=== PATIENT | male | born 1960 | race Caucasian/White ===

== ENCOUNTER → 2017-08-31 | Day surgery (SDC) | payer BC ==
[2017-08-24 23:00] VITALS: BMI 38.6
[~2017-08-31] MED LIST: ALPRAZolam 0.25 MG TAB PO PRN; ALPRAZolam 0.5 MG TAB PO PRN; ASPIRIN 325 MG TAB PO STA; ATORVASTATIN 80 MG TAB PO STA; IODIXANOL 320 MG/ML 100 ML INTRAARTER ONE; LIDOCAINE 2% INJ 20 MG/ML (20 ML MDV) ONE; LIDOCAINE 2% INJ 20 MG/ML SQ ONE; MIDAZOLAM 2 MG/2 ML VIAL IV ONE; MIDAZOLAM 2 MG/2 ML VIAL ONE; NITROGLYCERIN SL TABS 0.4 MG TAB SUBLINGUAL PRN; RX INFO: IV CONTRAST WAS GIVEN 1 EACH MISC MISCELLANE PRN; SODIUM CHLORIDE 0.9% 1,000 ML IV SCH; SODIUM CHLORIDE 0.9% 1,000 ML in EMPTY BAG 1 BAG IV ONE; fentaNYL (PF) 50 MCG/ML 2 ML AMP IV ONE; fentaNYL (PF) 50 MCG/ML 2 ML AMP ONE
[2017-08-31 06:31] LABS: Glucose,Whole Blood 149 mg/dL (75-99)
[2017-08-31 06:32] VITALS: RESP 18
--- NOTE | 2017-08-31 10:30 | CC ---
CARDIAC CATHETERIZATION REPORT REFERRING PHYSICIAN: Dr. Akbar. INDICATION: Exertional shortness of breath with abnormal stress test showing ischemia in LAD distribution. PROCEDURE NOTE: After obtaining informed consent, left heart catheterization and coronary angiogram were performed via the right femoral artery using standard Mahesh catheters. The patient tolerated the procedure well without any obvious immediate complications. The patient will have manual hemostasis. SEDATION: Patient received moderate conscious sedation. The total sedation time was 15 minutes findings. HEMODYNAMICS: Left ventricular end-diastolic pressure is 16 mm. There is no significant gradient across aortic valve. LEFT VENTRICULOGRAM: Left ventriculogram is not performed. ANGIOGRAPHIC DATA: 1. Left main coronary artery: Left main coronary artery is a normal-sized vessel and is free of stenosis. Divides into left anterior descending coronary artery and circumflex coronary artery. 2. Circumflex coronary artery is a "is a nondominant vessel, but a large caliber vessel and is free of significant stenosis. LAD in the mid to distal portion becomes a small caliber vessel and there is a 40% stenosis just proximal to the 3rd diagonal branch. 3. Right coronary artery is a large dominant vessel that shows mild nonobstructive CAD. CONCLUSION: 1. 40% stenosis involving mid LAD. 2. Mild nonobstructive coronary artery disease involving right coronary artery. PLAN: I reviewed angiographic data with the patient and told him that his stress test is probably a false positive stress test and his symptoms are unrelated to the coronary artery disease. His management is going to be in the form of risk factor modification, optimal medical therapy. The patient is on Janumet, which he is going to hold for 48 hours. I will encourage the patient to lose weight and exercise regularly. I am going to stop the beta josh that he is on given the sinus bradycardia with heart rates in the 40s. MMODL / IJN: [id number] /
--- NOTE | 2017-08-31 10:30 | LTR ---
DATE OF SERVICE: 08/31/2017 Dear Ramu: I performed cardiac catheterization on Joe Ibarra. A detailed catheterization report is enclosed with the latter. In brief, the cardiac catheterization revealed nonobstructive coronary artery disease, which is going to be managed medically at this time. Thank you for giving me the privilege to participate in the care of this pleasant gentleman. Sincerely, ALCON / JANETHN: [id number] /
[2017-08-31 17:08] VITALS: BP 112/64; PULSE 56; TEMP 98.2
== END ==
LOC: CATHCVL 05:58
PROVIDERS: ATTEND Internal Medicine Cardiovascular Disease
DX: I25.10 Atherosclerotic heart disease of native coronary artery without angina pectoris (principal); R94.39 Abnormal result of other cardiovascular function study; E66.01 Morbid (severe) obesity due to excess calories; Z68.38 Body mass index [BMI] 38.0-38.9, adult; E11.9 Type 2 diabetes mellitus without complications; E78.5 Hyperlipidemia, unspecified; Z79.84 Long term (current) use of oral hypoglycemic drugs; Z79.1 Long term (current) use of non-steroidal anti-inflammatories (NSAID); Z79.82 Long term (current) use of aspirin; Z79.899 Other long term (current) drug therapy
CPT/HCPCS: 93458; C1894; C1769; J2001; J2250; Q9967; J3010

== ENCOUNTER → 2019-01-23 | Outpatient (CLI) | payer BC ==
--- NOTE | 2019-01-23 23:26 | CONS ---
CONSULTATION REASON FOR CONSULTATION: Sleep apnea. This is a 58-year-old male patient diagnosed having obstructive sleep apnea more than 20 years ago. His last CPAP machine was given to him 19 years ago. It is an older- generation Respironic unit set at a pressure of 16 cm of water. The patient was unable to tolerate the treatment and has been off treatment for all these years. He saw Dr. Chappell from ENT and underwent UPPP without any success. He continues to snore and stops breathing, as reported by his , and he is excessively somnolent and sleepy during the day. Greenwood score is 17. He goes to bed around 8 p.m. and wakes up at 5 a.m. in the morning. He wakes up gasping for air and he has the typical manifestations of obstructive sleep apnea. His weight is up and his current BMI is 42.4. PAST MEDICAL HISTORY: 1. Diabetes mellitus. 2. Hyperlipidemia. 3. LES. SURGICAL HISTORY: Surgical history includes UPPP for ELS and cardiac catheterization without any intervention. DRUG ALLERGIES: NOT KNOWN. OUTPATIENT MEDICATION: Outpatient medications include: 1. Janumet. 2. Pioglitazone. 3. Lipitor. 4. Vitamin D. 5. Baby aspirin. 6. Viagra. SOCIAL HISTORY: The patient is a nonsmoker. No history of alcoholism. No history of IV drugs. He operates a truck and other machinery. FAMILY HISTORY: Negative for sleep apnea. REVIEW OF SYSTEMS: Fourteen-point review of systems was done. Positive findings are all mentioned above in the history of present illness. No history of insomnia. Some occasional nocturia and urge to urinate at bedtime. No sleepwalking or sleeptalking. Wakes up with a dry mouth. No anxiety or panic attacks. No heartburn. No chest pain. No claustrophobia. No altered mentation. No problems with memory or concentration. He falls asleep during the day; not while driving; and has never been involved in a motor vehicle accident. 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 PHYSICAL EXAMINATION: BP is 136/67, pulse 78, respirations 16, temperature 97.8. Saturation 95% on room air. Height is 6 feet 0 inches. Weight is 317. Greenwood score is 17. Neck size 19 inches. BMI is 42.4. GENERAL APPEARANCE: Calm, comfortable. HEAD: Atraumatic, normocephalic. NECK: Short, supple. Crowding of the posterior pharynx. There is no goiter or neck mass. Mallampati class III. He has got also resection of the uvula and soft palate with previous signs of UPPP. LUNGS: Clear to auscultation. HEART: Heart sounds are regular rate and rhythm. Normal S1, S2. No S3, S4. No murmurs. ABDOMEN: Soft, nontender. No organomegaly. EXTREMITIES: No edema. No cyanosis or clubbing. NEUROLOGIC: Alert and oriented x3. No focal neurological deficits. PSYCHIATRIC: Negative for anxiety or depression. SKIN: Negative for any wounds or ulceration. IMPRESSION: 1. Symptomatic obstructive sleep apnea, severe at baseline, posterior uvulopalatopharyngoplasty. The patient has been on no treatment for the past 20 years and currently is coming in for reevaluation. 2. Morbid obesity. BMI is 42.4. 3. Previous uvulopalatopharyngoplasty. 4. Diabetes mellitus. 5. Hyperlipidemia. 6. Hypersomnia with Greenwood score of 17. PLAN: 1. Encourage weight loss. 2. Avoid driving, especially when feeling drowsy or sleepy. 3. Proceed with a screening polysomnogram to re-evaluate the severity of the disease and proceed with treatment accordingly. MMODL / IJN: [id number] /
== END ==
LOC: SLEEP 16:11
PROVIDERS: ATTEND Internal Medicine Critical Care Medicine
DX: G47.33 Obstructive sleep apnea (adult) (pediatric) (principal); E66.01 Morbid (severe) obesity due to excess calories; E11.9 Type 2 diabetes mellitus without complications; E78.5 Hyperlipidemia, unspecified; Z68.41 Body mass index [BMI] 40.0-44.9, adult; Z90.89 Acquired absence of other organs; Z79.899 Other long term (current) drug therapy; Z79.82 Long term (current) use of aspirin
CPT/HCPCS: 99211

== ENCOUNTER → 2019-05-01 | Outpatient (CLI) | payer BC ==
--- NOTE | 2019-05-01 20:55 | PN ---
PROGRESS NOTE This patient is 58-year-old with severe obstructive sleep apnea. He is post UPPP. AHI of 96. Currently on CPAP pressure of 12. He is doing extremely well clinically. However, the compliance data needs to be further adjusted. Based on the compliancy data that was collected over the past 30 years, the patient achieving more than 4 hours, 19 out of the past 30 days. He is averaging 5 hours of CPAP use per night. His leak is 54 L/minute while using a Dream[employer]ear [id number] large size mask. His AHI is down to 2. He is feeling better. Much more refreshed and alert during the day. He wants to continue the treatment and he is to achieve better compliance. REVIEW OF SYSTEMS: Fourteen-point review of system was done. Improved, in terms of sleepiness and tiredness and fatigue. Sleep quality is improved. [place] score is down to 9. No chest pain. No shortness of breath. No cough or sputum production, no altered mentation. PHYSICAL EXAMINATION: BP is 148/84, pulse 68, respirations 16, temperature 97.4, saturation 98% on room air. Weight is 317. General appearance is calm and comfortable. Head is atraumatic, normocephalic. Neck is post UPPP. There is no goiter or neck masses. Mallampati class IV. LUNGS: Clear to auscultation. HEART: Sounds regular rate and rhythm. Normal S1, S2. No S3. No murmurs. ABDOMEN: Soft, nontender. No organomegaly. EXTREMITIES: No edema. No cyanosis or clubbing. NEUROLOGIC: Alert and oriented x3. No focal neurological deficits. PSYCHIATRIC: Negative for anxiety or depression. IMPRESSION: 1. Severe obstructive sleep apnea AHI of 96, currently on CPAP at a pressure of 12, he is post uvulopalatopharyngoplasty. 2. REM rebound, post CPAP therapy. 3. Chronic hypersomnia, improved. 4. Obesity, BMI of 43. 5. Diabetes. 6. Hyperlipidemia. PLAN: Will demand better compliancy. The patient needs to achieve more than 4 hours every night. He needs to increase the average number of hours of CPAP use per night. He needs to wear it every night without any interruption. He is using a Dream[employer] fullface mask which will be renewed. Encourage weight loss. See me back in short-term followup in 6 months' time. MMODL / IJN: [id number] /
== END | disposition home or self-care (01) ==
LOC: SLEEP 16:20
PROVIDERS: ATTEND Internal Medicine Critical Care Medicine
DX: G47.33 Obstructive sleep apnea (adult) (pediatric) (principal); E11.9 Type 2 diabetes mellitus without complications; E78.5 Hyperlipidemia, unspecified; E66.9 Obesity, unspecified; Z68.41 Body mass index [BMI] 40.0-44.9, adult; Z99.89 Dependence on other enabling machines and devices

== ENCOUNTER 2022-07-04 18:32 | Emergency (ER) | payer BC ==
[2022-07-04 18:36] VITALS: BP 168/71; PULSE 71; RESP 20; TEMP 98.4
[2022-07-04] MEDS ORDERED: LIDOCAINE 1% INJ 10MG/ML (30 ML VIAL-PF) SQ ONE (18:57)
[2022-07-04] MEDS ORDERED: BACITRACIN OINT 1 EACH PACKET TOPICAL ONE (18:57)
--- NOTE | 2022-07-04 19:56 | ED ---
General Adult HPI - General Chief complaint: Wound/Laceration Stated complaint: rt hand laceration Time Seen by Provider: 07/04/22 18:38 Source: patient, RN notes reviewed (Initial triage pulse ox documented at 20%; this was documented incorrectly- recheck 98%) Mode of arrival: ambulatory Limitations: no limitations - History of Present Illness Initial comments: 61-year-old male presents to the emergency department for evaluation of wound to the third digit on the right hand. Patient states he cut his finger on a wood burning stove this evening. Wound was cleansed prior to arrival. No active bleeding. Complains of minimal discomfort. Did not any medicines prior to arrival. States tetanus shot is up-to-date. Denies any loss of sensation, r elisa of motion, or any other injuries at this time. - Related Data Home Medications Medication Instructions Recorded Confirmed Atorvastatin [Lipitor] 10 mg PO HS 02/26/15 08/31/17 Aspirin 81 mg PO DAILY 08/23/17 08/31/17 Ergocalciferol (Vitamin D2) 50,000 unit PO WEEKLY 08/31/17 08/31/17 [Vitamin D2] Pioglitazone [Actos] 30 mg PO DAILY 08/31/17 08/31/17 sitaGLIPtin PHOS/metFORMIN HCL 1 each PO BID 08/31/17 08/31/17 [Janumet 50-1,000 mg Tablet] Allergies Allergy/AdvReac Type Severity Reaction Status Date / Time No Known Allergies Allergy Verified 07/04/22 18:36 Review of Systems ROS Statement: Those systems with pertinent positive or pertinent negative responses have been documented in the HPI. ROS Other: All systems not noted in ROS Statement are negative. Past Medical History Past Medical History: COPD, Diabetes Mellitus, Hyperlipidemia, Sleep Apnea/CPAP/BIPAP Additional Past Medical History / Comment(s): PVD, NO CPAP History of Any Multi-Drug Resistant Organisms: None Reported Past Surgical History: Heart Catheterization, Tonsillectomy Additional Past Surgical History / Comment(s): SLEEP APNEA SURGERY. Past Anesthesia/Blood Transfusion Reactions: No Reported Reaction Past Psychological History: No Psychological Hx Reported Smoking Status: Current every day smoker Past Alcohol Use History: None Reported Past Drug Use History: None Reported - Past Family History Father Family Medical History: Cancer Additional Family Medical History / Comment(s): PROSTATE Mother Family Medical History: Eye Disorder Additional Family Medical History / Comment(s): RA Brother(s) Family Medical History: Cancer Additional Family Medical History / Comment(s): THROAT,TESTICULAR Sister(s) Family Medical History: Cancer Additional Family Medical History / Comment(s): BREAST,OVARIAN General Exam Limitations: no limitations (Well-developed, well-nourished male in no acute distress. Initial temperature 98.4, pulse 71, respirations 20, blood pressure 160/71, pulse ox recheck 98% on room air.) General appearance: alert, in no apparent distress Respiratory exam: Present: normal lung sounds bilaterally. Absent: respiratory distress, wheezes, rales, rhonchi, stridor Cardiovascular Exam: Present: regular rate, normal rhythm, normal heart sounds. Absent: systolic murmur, diastolic murmur, rubs, gallop, clicks Right Forearm Wrist exam: Present: normal inspection, full ROM. Absent: tenderness, swelling Hand Wrist exam: Present: normal inspection, full ROM, laceration (1.5cm irregular shaped laceration on the palmar surface of the distal phalanx on the right hand. ROM intact. No loss of sensation.). Absent: tenderness, swelling Neuro motor exam: Present: fingers 2-5 abduction intact Vascular: Present: normal capillary refill, radial pulse. Absent: vascular compromise, Pallo Neurological exam: Present: alert, oriented X3, CN II-XII intact Psychiatric exam: Present: normal affect, normal mood Course Vital Signs 07/04/22 07/04/22 18:34 20:04 Temperature 98.4 F Pulse Rate 71 Respiratory 20 Rate Blood Pressure 168/71 O2 Sat by Pulse 20 L 95 Oximetry Procedures - Laceration Laceration #1 Consent Obtained: verbal consent Indication: laceration Site: hand (right hand, 3rd digit, distal phalanx) Size (cm): 1 Description: irregular Depth: simple, single layer Anesthetic Used: lidocaine 1% Anesthesia Technique: nerve block Amount (mls): 2 Pre-repair: wound explored, irrigated extensively, deep structures intact Type of Sutures: nylon Size of Sutures: 4-0 Number of Sutures: 3 Technique: simple, interrupted Patient Tolerated Procedure: well, no complications Additional Comments: Patient educated on wound care/monitoring, and instructed on appropriate follow- up. Bacitracin dressing applied. Patient verbalizes understanding. Medical Decision Making - Medical Decision Making 61-year-old male with a past medical history of COPD and diabetes presents to the emergency department for evaluation of laceration. Upon exam, patient is well-appearing and in no acute distress. There is a 1.5 cm laceration to the distal phalanx on the third digit of the right hand. Bleeding was controlled prior to arrival. TD up to date. ROM intact. Digital block was performed and wound was thoroughly irrigated. There was no evidence of foreign body or deep structure injury. 3 simple interrupted sutures were placed with good alignment. Bacitracin dressing applied. Patient is instructed on appropriate wound care and follow-up. Encouraged to follow up with his PCP for a recheck in 48-72 hours. He verbalizes understanding and agrees with this plan. Attending: Sara Pierre Clinical Impression: Laceration Disposition: HOME SELF-CARE Condition: Stable Instructions (If sedation given, give patient instructions): Care For Your St itches (ED), Laceration (ED) Additional Instructions: Gently cleanse hand with mild soap and water. Apply antibiotic ointment. Keep covered when out of the house. Avoid submerging hand in contaminated water. Have sutures removed in 7-10 days. May take Tylenol or Motrin if needed for pain. Follow-up with your PCP for a wound recheck on Tuesday. Return to the emergency department with any new, worsening, or concerning symptoms. Is patient prescribed a controlled substance at d/c from ED?: No Referrals: Trung Stroud MD [Primary Care Provider] - 1-2 days Time of Disposition: 19:56
== END 2022-07-04 20:05 | disposition home or self-care (01) ==
LOC: EC 18:32
DX: S61.411A Laceration without foreign body of right hand, initial encounter (principal); J44.9 Chronic obstructive pulmonary disease, unspecified; E11.9 Type 2 diabetes mellitus without complications; E78.5 Hyperlipidemia, unspecified; G47.30 Sleep apnea, unspecified; F17.200 Nicotine dependence, unspecified, uncomplicated; Z79.82 Long term (current) use of aspirin; Z79.899 Other long term (current) drug therapy; W26.8XXA Contact with other sharp object(s), not elsewhere classified, initial encounter
CPT/HCPCS: 99283; 12001; J2001

== ENCOUNTER → 2023-03-07 | Outpatient (CLI) | payer BC ==
--- NOTE | 2023-03-08 08:46 | CTL ---
EXAMINATION TYPE: CT Low Dose Lung DATE OF EXAM ORDERED: 03/07/2023 HISTORY: . Lung cancer screening CT DLP: 177.[address] CTDI: 4.3 mGy Automated exposure control for dose reduction was used. SCREENING VISIT: COMPARISON: TECHNIQUE: Low dose computed tomography scan was performed through the chest at 1 mm thick sections a nd reconstructed images in multiple planes at 1 mm and [address] DIAGNOSTIC QUALITY: Satisfactory FINDINGS: There is a very mm groundglass right lower lobe image 35 series 6. There is a 3 mm nodule right lower lobe image 44 series 6. Additional micronodule in the 2 mm nodules are seen in benign Paraseptal emphysema along the left lung apex. No pneumothorax or pleural effusion. Airways patent. Heart size normal. The calcification below the aortic valve and there is dense LAD coronary artery ca lcification. Aorta normal caliber with mild atherosclerotic changes. No pathologic adenopathy by noncontrast technique. Multilevel hypertrophic and degenerative changes s pine. Structures of the upper abdomen demonstrate a limited assessment. A nodule involving the right adrenal gland is stable dating back to CT abdomen 1013 and therefore likely related to adenoma. IMPRESSION: 1. Multiple less than 5 mm pulmonary nodules which have benign appearance. 2. Dense coronary artery calcification correlate clinically. CT LUNG RAD AND CT CHEST RECOMMENDATION: Lung-Rad 2 Benign Appearance or Behavior: Continue annual sc reening with LDCT in 12 months.
== END | disposition home or self-care (01) ==
LOC: RADCTMAIN 18:27
PROVIDERS: ATTEND Family Medicine
DX: Z12.2 Encounter for screening for malignant neoplasm of respiratory organs (principal); F17.210 Nicotine dependence, cigarettes, uncomplicated; I25.10 Atherosclerotic heart disease of native coronary artery without angina pectoris; R91.8 Other nonspecific abnormal finding of lung field
CPT/HCPCS: 71271

== ENCOUNTER 2023-09-26 09:58 | Emergency (ER) | payer BC ==
--- NOTE | 2023-09-26 10:56 | ED ---
General Adult HPI - General Chief complaint: Urogenital Stated complaint: Kidney Stone Time Seen by Provider: 09/26/23 10:07 Source: patient, RN notes reviewed Mode of arrival: ambulatory Limitations: no limitations - History of Present Illness Initial comments: 63-year-old male presents emergency department chief complaint of difficulty urinating. Patient states he has painful burning urine states Ernestina is some hesitancy. Patient states she was seen at [facility] started on Bactrim for an E. coli infection. Patient states that he is never had a UTI before denies any knowledge of enlarged prostate. He denies any flank pain states symptoms started to start when his Ozempic dose was increased. Patient states that he was also started on Flomax after being diagnosed with his UTI. - Related Data Home Medications Medication Instructions Recorded Confirmed Atorvastatin [Lipitor] 10 mg PO HS 02/26/15 08/31/17 Aspirin 81 mg PO DAILY 08/23/17 08/31/17 Ergocalciferol (Vitamin D2) 50,000 unit PO WEEKLY 08/31/17 08/31/17 [Vitamin D2] Pioglitazone [Actos] 30 mg PO DAILY 08/31/17 08/31/17 sitaGLIPtin PHOS/metFORMIN HCL 1 each PO BID 08/31/17 08/31/17 [Janumet 50-1,000 mg Tablet] Previous Rx's Medication Instructions Recorded Ciprofloxacin HCl [Cipro] 500 mg PO Q12HR #20 tablet 09/26/23 Allergies Allergy/AdvReac Type Severity Reaction Status Date / Time No Known Allergies Allergy Verified 09/26/23 10:03 Review of Systems ROS Statement: Those systems with pertinent positive or pertinent negative responses have been documented in the HPI. ROS Other: All systems not noted in ROS Statement are negative. Past Medical History Past Medical History: COPD, Diabetes Mellitus, Hyperlipidemia, Sleep Apne a/CPAP/BIPAP Additional Past Medical History / Comment(s): PVD, NO CPAP History of Any Multi-Drug Resistant Organisms: None Reported Past Surgical History: Heart Catheterization, Tonsillectomy Additional Past Surgical History / Comment(s): SLEEP APNEA SURGERY. Past Anesthesia/Blood Transfusion Reactions: No Reported Reaction Past Psychological History: No Psychological Hx Reported Smoking Status: Current every day smoker Past Alcohol Use History: None Reported Past Drug Use History: None Reported - Past Family History Father Family Medical History: Cancer Additional Family Medical History / Comment(s): PROSTATE Mother Family Medical History: Eye Disorder Additional Family Medical History / Comment(s): RA Brother(s) Family Medical History: Cancer Additional Family Medical History / Comment(s): THROAT,TESTICULAR Sister(s) Family Medical History: Cancer Additional Family Medical History / Comment(s): BREAST,OVARIAN General Exam Limitations: no limitations General appearance: alert, in no apparent distress Head exam: Present: atraumatic, normocephalic, normal inspection Eye exam: Present: normal appearance, PERRL, EOMI. Absent: scleral icterus, conjunctival injection, periorbital swelling ENT exam: Present: normal exam, mucous membranes moist Neck exam: Present: normal inspection, full ROM. Absent: tenderness, meningismus, lymphadenopathy Respiratory exam: Present: normal lung sounds bilaterally. Absent: respiratory distress, wheezes, rales, rhonchi, stridor Cardiovascular Exam: Present: regular rate, normal rhythm, normal heart sounds. Absent: systolic murmur, diastolic murmur, rubs, gallop, clicks GI/Abdominal exam: Present: soft, normal bowel sounds. Absent: distended, tenderness, guarding, rebound, rigid Back exam: Absent: CVA tenderness (R), CVA tenderness (L) Course Vital Signs 09/26/23 09/26/23 10:00 12:29 Temperature 97.9 F 97.8 F Pulse Rate 69 88 Respiratory 20 18 Rate Blood Pressure 153/72 142/78 O2 Sat by Pulse 98 98 Oximetry Medical Decision Making - Medical Decision Making Was pt. sent in by a medical professional or institution (, PA, MECHANICS SUPERVISOR, urgent care, hospital, or snf...) When possible be specific @ -No Did you speak to anyone other than the patient for history (EMS, parent, family, police, friend...)? What history was obtained from this source @ -No Did you review nursing and triage notes (agree or disagree)? Why? @ -I reviewed and agree with nursing and triage notes Were old charts reviewed (outside hosp., previous admission, EMS record, old EKG, old radiological studies, urgent care reports/EKG's, snf records)? Report findings @ -[Reviewed outpatient urine culture Differential Diagnosis (chest pain, altered mental status, abdominal pain women, abdominal pain men, vaginal bleeding, weakness, fever, dyspnea, syncope, headache, dizziness, GI bleed, back pain, seizure, CVA, palpatations, mental health, musculoskeletal)? @ -Differential Abdominal Pain Men: Appendicitis, cholecystitis, diverticulosis, ischemic bowel, pancreatitis, hepatitis, UTI, gastroenteritis, AAA, incarcerated hernia, bowel obstruction, constipation, inflammatory bowel, hepatitis, peptic ulcer disease, splenic infarction, perforated viscus, testicular torsion, this is not meant to be an all-inclusive list EKG interpreted by me (3pts min.). @ -[None X-rays interpreted by me (1pt min.). @ -[None done CT interpreted by me (1pt min.). @ -None done U/S interpreted by me (1pt. min.). @ -None done What testing was considered but not performed or refused? (CT, X-rays, U/S, la bs)? Why? @ -None What meds were considered but not given or refused? Why? @ -None Did you discuss the management of the patient with other professionals (professionals i.e. , PA, MECHANICS SUPERVISOR, lab, RT, psych nurse, social work administrator, metals sales representative, teacher, infantry weapons officer, disease case manager rn)? Give summary @ -No Was smoking cessation discussed for >3mins.? @ -No Was critical care preformed (if so, how long)? @ -No Were there social determinants of health that impacted care today? How? (Homelessness, low income, unemployed, alcoholism, drug addiction, transportation, low edu. Level, literacy, decrease access to med. care, penitentiary, rehab)? @ -No Was there de-escalation of care discussed even if they declined (Discuss DNR or withdrawal of care, Hospice)? DNR status @ -No What co-morbidities impacted this encounter? (DM, HTN, Smoking, COPD, CAD, Cancer, CVA, ARF, Chemo, Hep., AIDS, mental health diagnosis, sleep apnea, morbid obesity)? @ -None Was patient admitted / discharged? Hospital course, mention meds given and route, prescriptions, significant lab abnormalities, going to OR and other pertinent info. @ -[Charged patient's laboratory studies show evidence of a urinary tract infection and he was given Rocephin patient was switched to ciprofloxacin as he has had minimal improvement after Bactrim. Patient will have follow-up with urology return brands discussed. Undiagnosed new problem with uncertain prognosis? @ -No Drug Therapy requiring intensive monitoring for toxicity (Heparin, Nitro, Insulin, Cardizem)? @ -No Were any procedures done? @ -No Diagnosis/symptom? @ -[UTI Acute, or Chronic, or Acute on Chronic? @ -Acute Uncomplicated (without systemic symptoms) or Complicated (systemic symptoms)? @ -[Complicated Side effects of treatment? @ -No Exacerbation, Progression, or Severe Exacerbation? @ -No Poses a threat to life or bodily function? How? (Chest pain, USA, MD, pneumonia, PE, COPD, DKA, ARF, appy, cholecystitis, CVA, Diverticulitis, Homicidal, Suicidal, threat to staff... and all critical care pts) @ -No - Lab Data Result diagrams: 09/26/23 10:50 09/26/23 10:50 Lab Results 09/26/23 09/26/23 09/26/23 Range/Units 10:00 10:50 10:50 WBC 9.4 (3.8-10.6) k/uL RBC 4.91 (4.30-5.90) m/uL Hgb 15.7 (13.0-17.5) gm/dL Hct 45.5 (39.0-53.0) % MCV 92.6 (80.0-100.0) fL MCH 31.9 (25.0-35.0) pg MCHC 34.5 (31.0-37.0) g/dL RDW 13.2 (11.5-15.5) % Plt Count 272 (150-450) k/uL MPV 7.0 Neutrophils % 73 % Lymphocytes % 15 % Monocytes % 8 % Eosinophils % 1 % Basophils % 0 % Neutrophils # 6.9 (1.3-7.7) k/uL Lymphocytes # 1.4 (1.0-4.8) k/uL Monocytes # 0.8 (0-1.0) k/uL Eosinophils # 0.1 (0-0.7) k/uL Basophils # 0.0 (0-0.2) k/uL Sodium 134 L (137-145) mmol/L Potassium 4.8 (3.5-5.1) mmol/L Chloride 105 (98-107) mmol/L Carbon Dioxide 23 (22-30) mmol/L Anion Gap 6 mmol/L BUN 28 H (9-20) mg/dL Creatinine 1.39 H (0.66-1.25) mg/dL Est GFR (CKD-EPI)AfAm 61 (>60 ml/min/1.73 sqM) Est GFR (CKD-EPI)NonAf 53 (>60 ml/min/1.73 sqM) Glucose 193 H (74-99) mg/dL Calcium 9.4 (8.4-10.2) mg/dL Total Bilirubin 0.4 (0.2-1.3) mg/dL AST 35 (17-59) U/L ALT 58 H (4-49) U/L Alkaline Phosphatase 100 (38-126) U/L Total Protein 6.9 (6.3-8.2) g/dL Albumin 3.8 (3.5-5.0) g/dL Urine Color Yellow Urine Appearance Cloudy (Clear) Urine pH 6.0 (5.0-8.0) Ur Specific [place] 1.030 (1.001-1.035) Urine Protein 1+ H (Negative) Urine Glucose (UA) Negative (Negative) Urine Ketones Negative (Negative) Urine Blood Negative (Negative) Urine Nitrite Negative (Negative) Urine Bilirubin Negative (Negative) Urine Urobilinogen <2.0 (<2.0) mg/dL Ur Leukocyte Esterase Large H (Negative) Urine RBC 19 H (0-5) /hpf Urine WBC >182 H (0-5) /hpf Ur Squamous Epith Cells <1 (0-4) /hpf Hyaline Casts 8 H (0-2) /lpf Urine Mucus Few H (None) /hpf Disposition Clinical Impression: UTI (urinary tract infection) Disposition: HOME SELF-CARE Condition: Stable Instructions (If sedation given, give patient instructions): Urinary Tract Infection in Men (ED) Additional Instructions: Please return to the Emergency Department if symptoms worsen or any other concerns. Prescriptions: Ciprofloxacin HCl [Cipro] 500 mg PO Q12HR #20 tablet Is patient prescribed a controlled substance at d/c from ED?: No Referrals: Trung Stroud MD [Primary Care Provider] - 1-2 days Joe Gonzales MD [STAFF PHYSICIAN] - 1-2 days Time of Disposition: 12:12
[2023-09-26 10:59] LABS: Basophils % (A) 0 %; Eosinophils # (A) 0.1 k/uL (0-0.7); Eosinophils % (A) 1 %; HCT 45.5 % (39.0-53.0); HGB 15.7 gm/dL (13.0-17.5); Lymphocytes # (A) 1.4 k/uL (1.0-4.8); Lymphocytes % (A) 15 %; MCH 31.9 pg (25.0-35.0); MCHC 34.5 g/dL (31.0-37.0); MCV 92.6 fL (80.0-100.0); Monocytes # (A) 0.8 k/uL (0-1.0); Monocytes % (A) 8 %; Neutrophils # (A) 6.9 k/uL (1.3-7.7); Neutrophils % (A) 73 %; Platelet Count 272 k/uL (150-450); RBC 4.91 m/uL (4.30-5.90); RDW 13.2 % (11.5-15.5); WBC 9.4 k/uL (3.8-10.6)
[2023-09-26 11:01] LABS: Appearance,Urine Cloudy (Clear); Bilirubin,Urine Negative (Negative); Blood,Urine Negative (Negative); Color,Urine Yellow; Glucose,Urine (UA) Negative (Negative); Hyaline Casts,Urine 8 /lpf (0-2); Ketones,Urine Negative (Negative); Leukocyte Esterase,Urine Large (Negative); Mucus,Urine Few /hpf; Nitrite,Urine Negative (Negative); Protein,Urine 1+ (Negative); RBC,Urine 19 /hpf (0-5); Squamous Epithelial Cell,Urine <1 /hpf (0-4); Urobilinogen,Urine <2.0 mg/dL (<2.0); WBC,Urine >182 /hpf (0-5)
[2023-09-26 11:20] LABS: ALT 58 U/L (4-49); AST 35 U/L (17-59); African American GFR (CKD) 61 (>60 ml/min/1.73 sqM); Albumin 3.8 g/dL (3.5-5.0); Alkaline Phosphatase 100 U/L (38-126); Anion Gap 6 mmol/L; Blood Urea Nitrogen 28 mg/dL (9-20); Calcium 9.4 mg/dL (8.4-10.2); Carbon Dioxide 23 mmol/L (22-30); Chloride 105 mmol/L (98-107); Glucose 193 mg/dL (74-99); Non-African American GFR(CKD) 53 (>60 ml/min/1.73 sqM); Potassium 4.8 mmol/L (3.5-5.1); Sodium 134 mmol/L (137-145); Total Bilirubin 0.4 mg/dL (0.2-1.3); Total Protein 6.9 g/dL (6.3-8.2)
[2023-09-26] MEDS ORDERED: cefTRIAXone IN SWFI 1,000 MG/10 ML SYRINGE IVP STA (12:10)
[2023-09-26 12:42] VITALS: BP 142/78; PULSE 88; RESP 18; TEMP 97.8
== END 2023-09-26 12:29 | disposition home or self-care (01) ==
LOC: EC 09:58
DX: N39.0 Urinary tract infection, site not specified (principal); J44.9 Chronic obstructive pulmonary disease, unspecified; E11.9 Type 2 diabetes mellitus without complications; G47.30 Sleep apnea, unspecified; F17.200 Nicotine dependence, unspecified, uncomplicated; E78.5 Hyperlipidemia, unspecified; Z79.82 Long term (current) use of aspirin; Z79.899 Other long term (current) drug therapy; Z79.84 Long term (current) use of oral hypoglycemic drugs
CPT/HCPCS: 51798; 36415; 80053; 85025; 81001; 87086; 99284; 96374; J0696